=== PATIENT | male | born 1980 | race American Indian/Alaskan Native ===

== ENCOUNTER → 2016-07-04 15:30 | Emergency (ER) | payer OTHER | END | disposition left against medical advice (07) | LOC: CED 15:30 | DX: Z53.21 Procedure and treatment not carried out due to patient leaving prior to being seen by health care provider (principal) ==

== ENCOUNTER 2016-07-04 22:37 | Emergency (ER) | payer OTHER | END 2016-07-04 23:25 | disposition home or self-care (01) | LOC: CFTX 22:37 | DX: J45.21 Mild intermittent asthma with (acute) exacerbation (principal); Z76.0 Encounter for issue of repeat prescription; F17.200 Nicotine dependence, unspecified, uncomplicated; Z90.49 Acquired absence of other specified parts of digestive tract | CPT/HCPCS: 94640; 99283 ==